=== PATIENT | female | born 1980 | race Caucasian/White ===

== ENCOUNTER 2016-06-20 06:15 | Emergency (ER) | payer SELFPAY ==
[~2016-06-20] VITALS: Ht 152.4 cm; Wt 84.4 kg
[2016-06-20] MEDS ORDERED: PROVENTIL HFA6.7 GM INH (09:13)
== END 2016-06-20 07:08 | disposition short-term general hospital (02) ==
LOC: ER 06:15
DX: T19.2XXA Foreign body in vulva and vagina, initial encounter (principal)

== ENCOUNTER 2016-07-12 18:42 | Emergency (ER) | payer SELFPAY ==
[~2016-07-12] VITALS: Ht 152.4 cm; Wt 84.4 kg
[~2016-07-12 18:42] MED LIST: PROVENTIL HFA6.7 GM INH
== END 2016-07-12 19:25 | disposition short-term general hospital (02) ==
LOC: ER 18:42
DX: S91.332A Puncture wound without foreign body, left foot, initial encounter (principal); Z23 Encounter for immunization; W26.8XXA Contact with other sharp object(s), not elsewhere classified, initial encounter